=== PATIENT | female | born 1995 | race Hispanic/Latino ===

== ENCOUNTER 2022-05-16 09:32 | Emergency (ER) | payer OTHER ==
[~2022-05-16] VITALS: Ht 170.2 cm; Wt 89.0 kg
[2022-05-16] MEDS ORDERED: PRENATAL CAPLE1 EACH (09:52)
[2022-05-16] MEDS ORDERED: KETOROLAC TROMETHAMINE 60 MG/2 ML VIAL IM ONE (10:15)
[2022-05-16] MEDS ORDERED: PREDNISONE 20 MG TAB PO ONE (10:15)
[2022-05-16] MEDS ORDERED: KETOROLAC TROMETHAMINE 60 MG/2 ML VIAL ONE (10:39)
[2022-05-16] MEDS ORDERED: PREDNISONE 20 MG TAB ONE (10:39)
[2022-05-16] MEDS ORDERED: PREDNISONE50 MG PO (11:01)
[2022-05-16] MEDS ORDERED: CYCLOBENZAPRINE10 MG PO (11:03)
[2022-05-16] MEDS ORDERED: ACETAMINOPHEN-1 EAC4 PO (11:05)
== END 2022-05-16 11:16 | disposition home or self-care (01) ==
LOC: FSED 10:00
DX: M54.12 Radiculopathy, cervical region (principal); M62.838 Other muscle spasm
CPT/HCPCS: 81003; 81025; 96372; 99283; J1885; J7512

== ENCOUNTER 2022-07-27 18:17 | Emergency (ER) | payer OTHER ==
[~2022-07-27] VITALS: Ht 165.1 cm; Wt 86.4 kg
[~2022-07-27 18:17] MED LIST: ACETAMINOPHEN-1 EAC4 PO; CYCLOBENZAPRINE10 MG PO; PREDNISONE50 MG PO; PRENATAL CAPLE1 EACH
[2022-07-27] MEDS ORDERED: VYVANSE50 MG (18:28)
== END 2022-07-27 20:49 | disposition home or self-care (01) ==
LOC: FSED 18:22
DX: S63.696A Other sprain of right little finger, initial encounter (principal); X50.1XXA Overexertion from prolonged static or awkward postures, initial encounter; Y92.89 Other specified places as the place of occurrence of the external cause; F90.9 Attention-deficit hyperactivity disorder, unspecified type
CPT/HCPCS: 99283

== ENCOUNTER 2022-11-21 22:59 | Emergency (ER) | payer OTHER ==
[~2022-11-21] VITALS: Ht 167.6 cm; Wt 83.9 kg
[~2022-11-21 22:59] MED LIST changes: +VYVANSE50 MG
[2022-11-21] MEDS ORDERED: LIDOCAINE VISC 2% SOLN 15 ML UDC ONE (23:12)
[2022-11-21] MEDS ORDERED: LIDOCAINE VISC 2% SOLN 15 ML UDC TOP ONE (23:15)
[2022-11-21] MEDS ORDERED: KETOROLAC TROMETHAMINE 60 MG/2 ML VIAL IM ONE (23:15)
[2022-11-21] MEDS ORDERED: ACETAMINOPHEN 325 MG TAB PO ONE (23:15)
[2022-11-22 00:38] VITALS: BP 111/64; PULSE 80; RESP 18; TEMP 98.8; O2SAT 99
== END 2022-11-22 00:38 | disposition home or self-care (01) ==
LOC: FSED 23:08
DX: K62.89 Other specified diseases of anus and rectum (principal); K60.2 Anal fissure, unspecified; F90.9 Attention-deficit hyperactivity disorder, unspecified type
CPT/HCPCS: 96372; 99282; J1885